=== PATIENT | female | born 1975 | race Caucasian/White ===

== ENCOUNTER 2021-07-22 10:04 | Emergency (ER) | payer BC ==
[~2021-07-22] VITALS: Ht 162.6 cm; Wt 157.3 kg
[2021-07-22 10:13] VITALS: TEMP 98
[2021-07-22 11:08] LABS: STREP SCREEN NEGATIVE
[2021-07-22] MEDS ORDERED: CLEOCIN HCL300 MG PO (11:29)
[2021-07-22 11:49] VITALS: BP 131/88; PULSE 84
== END 2021-07-22 11:52 | disposition home or self-care (01) ==
LOC: COL.ER 10:04
PROVIDERS: Physician Assistant
DX: J03.90 Acute tonsillitis, unspecified (principal); J06.9 Acute upper respiratory infection, unspecified; E89.0 Postprocedural hypothyroidism

== ENCOUNTER 2023-07-09 09:15 | Outpatient (RCR) | payer BC ==
[~2023-07-09 09:15] MED LIST: CLEOCIN HCL300 MG PO
[2023-07-11] MEDS ORDERED: OMNICEF 300MG300 MG PO (19:14)
[2023-07-11] MEDS ORDERED: LASIX 20MG TABL20 MG PO (19:14)
== END 2023-07-10 | disposition home or self-care (01) ==
LOC: WSPT
DX: S80.12XD Contusion of left lower leg, subsequent encounter (principal); M24.9 Joint derangement, unspecified; I89.0 Lymphedema, not elsewhere classified; X58.XXXD Exposure to other specified factors, subsequent encounter

== ENCOUNTER 2023-07-17 08:08 | Outpatient (RCR) | payer BC ==
[~2023-07-17 08:08] MED LIST changes: +LASIX 20MG TABL20 MG PO; +OMNICEF 300MG300 MG PO
== END 2023-08-09 ==
LOC: WSPT
DX: S80.12XD Contusion of left lower leg, subsequent encounter (principal); M24.9 Joint derangement, unspecified; I89.0 Lymphedema, not elsewhere classified; X58.XXXD Exposure to other specified factors, subsequent encounter